=== PATIENT | female | born 1990 ===

== ENCOUNTER 2024-06-13 18:10 | Emergency (ER) | payer OTHER ==
[~2024-06-13] VITALS: Ht 160 cm; Wt 72.7 kg
[2024-06-13 18:16] VITALS: BP 145/88; PULSE 96; RESP 18; TEMP 98.7; O2SAT 99
[2024-06-13] MEDS ORDERED: ACET-3385 PO (19:05)
[2024-06-13] MEDS: ACETAMINOPHEN 500 MG TABLET PO ONE (19:39)
== END 2024-06-13 19:51 | disposition home or self-care (01) ==
LOC: EMS 18:10
DX: S30.0XXA Contusion of lower back and pelvis, initial encounter (principal); M54.50 Low back pain, unspecified; Z3A.37 37 weeks gestation of pregnancy; W19.XXXA Unspecified fall, initial encounter; Y93.89 Activity, other specified; Y92.89 Other specified places as the place of occurrence of the external cause; Y99.0 Civilian activity done for income or pay
CPT/HCPCS: 99282; Z7502; Z7610